=== PATIENT | female | born 1975 | race Caucasian/White ===

== ENCOUNTER → 2020-04-18 13:45 | Outpatient (CLI) | payer OTHER, SELFPAY ==
--- NOTE | ~2020-04-18 | US_ITS ---
EXAMINATION: US pelvic complete DATE: 04/18/2020 14:06 INDICATION: Pelvic pain and abnormal uterine bleeding TECHNIQUE: Multiple transabdominal and endovaginal sonographic images of the pelvis were obtained. COMPARISON: 04/15/2012 FINDINGS: The uterus measures 10.1 x 4.4 x 4.9 cm. The endometrial complex measures 5 mm. The right o vary measures 2.3 x 1.9 x 2.8 cm. The left ovary measures 2.8 x 2 x 1.9 cm. There is normal vascular flow in the ovaries. There is no free fluid in the pelvis. IMPRESSION: 1. No sonographic correlate for the patient's symptoms. Reviewed, dictated and finalized at location B.
== END ==
PROVIDERS: Visit Provider Nurse Practitioner
DX: N93.9 Abnormal uterine and vaginal bleeding, unspecified (principal)
CPT/HCPCS: 76856